=== PATIENT | male | born 1985 | race Caucasian/White ===

== ENCOUNTER 2018-06-13 16:33 | Emergency (ER) | payer BC ==
--- NOTE | 2018-06-13 16:48 | EDM.PDOC ---
ED HPI GENERAL MEDICAL PROBLEM - General Chief Complaint: ENT Problem Stated Complaint: SWALLOWED A TOOTH PICK Time Seen by Provider: 06/13/18 16:46 Source of Information: Reports: Patient - History of Present Illness INITIAL COMMENTS - FREE TEXT/NARRATIVE: HISTORY AND PHYSICAL: History of present illness: []Patient states he swallowed a toothpick will eating high 2 days prior, he has no drooling muffled voice or trismus He has been able to eat and drink both solids and fluids without difficulty does have some pain with movement of his head and opening his mouth wide there is no stridor oropharynx is clear no fever nausea vomiting chills sweats no chest pain shortness breath headache dizziness or palpitation no bowel or urine symptoms Review of systems: As per history of present illness and below otherwise all systems reviewed and negative. Past medical history: As per history of present illness and as reviewed below otherwise noncontributory. Surgical history: As per history of present illness and as reviewed below otherwise noncontributory. Social history: No reported history of drug or alcohol abuse. Family history: As per history of present illness and as reviewed below otherwise noncontributory. Physical exam: HEENT: Atraumatic, normocephalic, pupils reactive, negative for conjunctival pallor or scleral icterus, mucous membranes moist, throat clear, neck supple, nontender, trachea midline. Pharynx clear no stridor no neck swelling mild tenderness with deep palpation on the right Lungs: Clear to auscultation, breath sounds equal bilaterally, chest nontender. Heart: S1S2, regular, negative for clicks, rubs, or JVD. Abdomen: Soft, nondistended, nontender. Negative for masses or hepatosplenomegaly. Negative for costovertebral tenderness. Pelvis: Stable nontender. Genitourinary: Deferred. Rectal: Deferred. Extremities: Atraumatic, negative for cords or calf pain. Neurovascular unremarkable. Neuro: Awake, alert, oriented. Cranial nerves II through XII unremarkable. Cerebellum unremarkable. Motor and sensory unremarkable throughout. Exam nonfocal. Diagnostics: [Soft tissue neck plain film ] Therapeutics: [I did discuss patient with Dr. Kan, she did request the soft tissue neck with results faxed to her office she will see the patient in the morning ] Impression: Possible foreign body [Dysphasia] Definitive disposition and diagnosis as appropriate pending reevaluation and review of above. - Related Data Allergies Allergy/AdvReac Type Severity Reaction Status Date / Time No Known Allergies Allergy Verified 06/13/18 16:38 Home Meds: Home Meds Albuterol [Proventil] 1 dose INH ASDIRECTED PRN 06/13/18 [History] Sertraline HCl [Zoloft] 20 mg PO DAILY 06/13/18 [History] Past Medical History HEENT History: Reports: None Cardiovascular History: Reports: None Respiratory History: Reports: Asthma Gastrointestinal History: Reports: None Genitourinary History: Reports: None Musculoskeletal History: Reports: None Neurological History: Reports: None Psychiatric History: Reports: Anxiety, Depression Endocrine/Metabolic History: Reports: None Hematologic History: Reports: None Immunologic History: Reports: None Oncologic (Cancer) History: Reports: None Dermatologic History: Reports: None - Infectious Disease History Infectious Disease History: Reports: None - Past Surgical History Head Surgeries/Procedures: Reports: None HEENT Surgical History: Reports: Tonsillectomy Cardiovascular Surgical History: Reports: None GI Surgical History: Reports: None Male Surgical History: Reports: None Endocrine Surgical History: Reports: None Neurological Surgical History: Reports: None Musculoskeletal Surgical History: Reports: None Oncologic Surgical History: Reports: None Dermatological Surgical History: Reports: None Social & Family History - Family History Family Medical History: Noncontributory - Tobacco Use Smoking Status *Q: Never Smoker Second Hand Smoke Exposure: No - Caffeine Use Caffeine Use: Reports: Coffee - Recreational Drug Use Recreational Drug Use: No ED ROS GENERAL - Review of Systems Review Of Systems: See Below ED EXAM, GENERAL - Physical Exam Exam: See Below Course - Vital Signs Last Recorded V/S: Last Vital Signs Temp 97.5 F 06/13/18 16:39 Pulse 69 06/13/18 16:39 Resp 18 06/13/18 16:39 BP 152/82 H 06/13/18 16:39 Pulse Ox 96 06/13/18 16:39 - Orders/Labs/Meds Orders: Active Orders 24 hr Category Date Time Status Neck Soft Tissue [CR] Stat Exams 06/13/18 Taken Departure - Departure Time of Disposition: 18:14 Disposition: Home, Self-Care 01 Condition: Good Clinical Impression: Dysphasia - Discharge Information Referrals: PCP,None [Primary Care Provider] - Forms: ED Department Discharge Additional Instructions: Follow-up with Dr. Kan ENT tomorrow in the morning, call at 9 AM schedule appointment she is aware of your case and would like to see you tomorrow morning Contact Dr. Kan phone number provided below [facility] - ENT [address] [place] [phone] The following information is given to patients seen in the emergency department who are being discharged to home. This information is to outline your options for follow-up care. We provide all patients seen in our emergency department with a follow-up referral. The need for follow-up, as well as the timing and circumstances, are variable depending upon the specifics of your emergency department visit. If you don't have a primary care physician on staff, we will provide you with a referral. We always advise you to contact your personal physician following an emergency department visit to inform them of the circumstance of the visit and for follow-up with them and/or the need for any referrals to a consulting specialist. The emergency department will also refer you to a specialist when appropriate. This referral assures that you have the opportunity for follow-up care with a specialist. All of these measure are taken in an effort to provide you with optimal care, which includes your follow-up. Under all circumstances we always encourage you to contact your private physician who remains a resource for coordinating your care. When calling for follow-up care, please make the office aware that this follow-up is from your recent emergency room visit. If for any reason you are refused follow-up, please contact the [facility] emergency department at and asked to speak to the emergency department charge nurse. - My Orders Last 24 Hours: My Active Orders 06/13/18 Neck Soft Tissue [CR] Stat - Assessment/Plan Last 24 Hours: My Active Orders 06/13/18 Neck Soft Tissue [CR] Stat
[2018-06-13 18:30] VITALS: BP 127/81
--- NOTE | 2018-06-14 09:56 | CR ---
EXAM DATE: 06/13/18 PATIENT'S AGE: 32 Patient: ELYSIA ERWIN Facility: [place], [place] Site . Site : 1985 Study: [address] Neck [id number] 5:05:40 PM Ordering Physician: Doctor Zamarripa Final Report: HISTORY: Swallowed a toothpick 2 days ago. COMPARISION: None available. FINDINGS: AP and lateral views of the soft tissues of the neck were obtained. There is no sign of a retained foreign body such as a toothpick. Please note that will within objects can be very difficult to identify on plain films. The airway structures are normal in appearance. The epiglottis is normal in appearance. There is no displacement of the trachea. No radiopaque foreign bodies are evident. The prevertebral soft tissues and cervical spine are normal in appearance. The cervical spine that is seen is normal in appearance. The apices of the lungs are clear. IMPRESSION: NORMAL TWO-VIEW SOFT TISSUE EXAMINATION OF THE NECK. NO SIGN OF A RETAINED FOREIGN BODY, ALTHOUGH A WOODEN FOREIGN BODY SUCH A TOOTHPICK MIGHT BE DIFFICULT TO IDENTIFY ON PLAIN FILMS. THERE IS NO SIGN OF ANY SOFT TISSUE SWELLING TO SUGGEST THAT A WOODEN FOREIGN BODY IS IMBEDDED IN THE HYPOPHARYNX OR SUPERIOR ESOPHAGUS. Dictated by Jeff Rojas MD @ Jun 13 2018 6:01PM (Electronic Signature) Report Signed by Proxy. POLLY
== END 2018-06-13 18:25 | disposition home or self-care (01) ==
LOC: MW.ED 16:33
DX: R47.02 Dysphasia (principal); Z79.899 Other long term (current) drug therapy; F41.9 Anxiety disorder, unspecified; F32.9 Major depressive disorder, single episode, unspecified
CPT/HCPCS: 70360; 70360-26; 99282; 99283

== ENCOUNTER 2018-11-10 14:14 | Emergency (ER) | payer BC | END 2018-11-10 14:30 | disposition left against medical advice (07) | LOC: MW.ED 14:14 | DX: Z53.21 Procedure and treatment not carried out due to patient leaving prior to being seen by health care provider (principal) ==